=== PATIENT | male | born 1950 | race Caucasian/White ===

== ENCOUNTER → 2017-04-03 | Day surgery (SDC) | payer MEDICARE, OTHER ==
[~2017-04-03] VITALS: Ht 172.7 cm; Wt 81.5 kg
[~2017-04-03] MED LIST: ASPI-973 PO; Acetaminophen IV 1,000 mg IV ONE; Atropine 0.4 mg/mL Inj IVPUSH PRN; Belladonna Alk-Opium 60 mg Rectal Suppository RECTAL ONE; CeFAZolin 2 Gm/50 mL D5W Duplex Bag IV ONE; CeFAZolin 2 Gm/50 mL D5W IV Premix IV ONE; EPHEDrine Sulfate 50 mg/mL Inj IVPUSH PRN; Famotidine 20 mg/50 mL NS Premix IV ONE; HYDROmorphone 1 mg/mL Inj IVPUSH PRN; Labetalol 5 mg/mL 20 mL Inj IV PRN; Lactated Ringer's 1,000 ML IV ONE; Lactated Ringer's 1,000 ML IV SCH; Lactated Ringer's 500 ML IV PRN; MULT-1018 PO; MetoCLOpramide 5 mg/mL 2 mL Inj IVPUSH PRN; Mitomycin Inj 20 MG in Syringe 1 EACH IRRIGATION ONE; OMEG1CAP25 PO; OMEP20CA11 PO; Ondansetron 2 mg/mL 2 mL Inj IVPUSH PRN; Phenylephrine 10,000 mCg/mL Inj IVPUSH PRN; Propofol 10 mg/mL 20 mL Inj ONE; Succinylcholine Chloride 20 mg/mL 5 mL Inj ONE; TAMS0.4C98 PO; fentaNYL-PF 50 mCg/mL 2 mL Inj IVPUSH PRN; fentaNYL-PF 50 mCg/mL 2 mL Inj ONE
[2017-04-03 13:37] VITALS: BP 126/80; PULSE 60; RESP 16; O2SAT 99
--- NOTE | 2017-04-03 15:04 | PCM.HPANE ---
Patient Data Surgeon Admitting Provider: Attending Provider:Darrell Dixon MD Primary Care Physician:Noe Calhoun MD Other Provider:Kristen Wintersingham Anesthesia Reason for Visit Multi-Focal Bladder Cancer Ht/WT & BMI Height (Feet): 5 Height (Inches): 8 Weight (Kilograms): 81.5 Body Mass Index 27.00 Allergies Coded Allergies: No Known Allergies (Unverified , 04/03/17) Past Anesthesia History Anesthesia History: Denies:: Abnormal Airway, Anesthesia Reactions, Difficult Intubation, Fam Anesthesia Reaction, Fam Malignant Hypertherm, Malignant Hyperthermia Diabetes History Hx Diabetes?: No MRSA MRSA: No Medications Blood Thinner: Aspirin Last Dose Blood Thinner: Mar 27, 2017 Home Meds Incl Beta Norma: No Reported Medications Multivitamin (Multi Vitamin Daily)1 Each Tablet1 Each PO DAILY 04/03/17 [place]-3 Fatty Acids/Fish Oil ([place] 3 Fish Oil Softgel)1 Each Capsule.dr1 Each PO 03/30/17 Aspirin 81 Mg [id number] Mg PO DAILY Ref 0 03/30/17 Tamsulosin (Flomax)0.4 Mg Capsule0.4 Mg PO DAILY Ref 0 03/30/17 Omeprazole 20 Mg Capsule.dr20 Mg PO DAILY Ref 0 03/30/17 History History of ENT Problems?: No HEENT History: Denies:: Abnormal Airway Cataracts Difficult Intubation Dysphagia Glaucoma Hearing Problem Sinus Problem TMJ Denture Type: None Teeth Condition: Within Normal Limits Hx of Heart Problems?: No Cardiovascular History: Denies:: AICD Abdominal Aortic Aneurism Atrial Fibrillation Cardiac Surgery Chest Pain Congestive Heart Failure Coronary Artery Disease Edema Heart Murmur Hypertension Irregular Heartbeat Pacemaker Peripheral Vascular Rheumatic Fever Thrombophlebitis Valvular Heart Disease Hx of Respiratory Problem?: No Respiratory History: Denies:: Asthma COPD Chest Surgery Cough Dyspnea Emphysema Hemoptysis Oxygen Administration Pneumonia Pulmonary Embolism Tuberculosis Use of C-PAP Machine Use of Inhalers / NEBS Hx Neurologic Problems?: No Neurological History: Denies:: Alzheimer's Disease CVA Dementia Dizziness Headaches Multiple Sclerosis Parkinson's Disease Peripheral Neuropathy Seizures TIA Hx of GI Problems?: No Gastrointestinal History: Positive for:: Gastroesphageal Reflux Hiatal Hernia Denies:: Cirrhosis Diverticulitis Gall Bladder Disease Gastrointestinal Bleeding Heartburn Hepatitis Liver Disease Rectal Bleeding Hx of Problems?: Yes (bladder tumor) Genitourinary History: Denies:: HX of Hemodialysis Kidney Stones Urinary Tract Infection HX of Peritoneal Dialysis: No Male Hx: Positive for:: Testicular Surgery (Appendiage removed from testicle at age 12, removed) Denies:: Prostate Problems (BPH) Scrotal Mass Skin History: Denies:: History Skin Disorders? Pressure Ulcers Hx Musculoskeletal Problems?: No Musculoskeletal History: Positive for:: Musculoskeletal Trauma (achilles tendon sep, 2015) Osteoarthritis Denies:: Back Injury Degenerative Joint Joint Replacement Rheumatoid Arthritis Hx of Psycho/Social Problems?: Yes Psycho Social History: Positive for:: Hx Depression Denies:: Anxiety Bipolar Disorder Suicide Attempt Hx Surgeries?: Yes (Hemmoridectomy 2007) Hx Any Other Health Problems?: Yes Other History: Positive for:: Cancer (Bladder) Denies:: Endocrine Disease Hospitalization Thyroid Disease History Blood Transfusions: Positive for:: Accept Blood Products? Denies:: Blood Transfusions Hx Diabetes: No Hx Alcohol Use: YesAlcoholic Drinks Per Day: 3 drinks a dayHx Substance Use: No (On occassion) Stop/Bang S-Snoring: Do You Snore Loudly: No T-Tired: feel tired, fatigued: Yes O-Obsered: Observed not breath: No P-Blood Pressure: treated: No B- Body Mass Index > 35 kg/m2: No A- Age over 50: Yes N- Neck Large Circumference: No G- Gender Male: No CAROL Total Score: 2 Risk Assessment Category Category 1A: Patient has history of documented sleep apnea, and HAS NOT received any narcotic, sedative or anesthesia administration during this stay. Category 1B: Patient has history of documented sleep apnea, and HAS received any narcotic , sedative or anesthesia administration during this stay Category 2: Patient has SUSPECTED Obstructive Sleep Apnea, and HAS received any narcotic , sedative or anesthesia administration during this stay. Category 3: Patient has SUSPECTED Obstructive Sleep Apnea and HAS NOT received narcotic, sedative or anesthesia administration during this stay. Category 4: Outpatient in Procedural Areas with known sleep apnea or who screen positive for High Risk via the STOP/BANG questionnaire. Exam Exam Vital Signs Vital Signs Date Time Temp Pulse Resp B/P Pulse Ox O2 Delivery O2 Flow Rate FiO2 04/03/17 13:37 36.5 60 16 126/80 99 Room Air General Appearance: Alert, Oriented X3, Cooperative, No Acute Distress HEENT/AIRWAY: MP 2, Neck Movement (FROM), Mouth Opening (3 FBMO) Lungs: Clear to Auscultation, Normal Air Movement Heart: Exam Unremarkable, Regular Rate/Rhythm, No Murmurs/Rubs/Gallops Meds/Labs/Diagnostics Admission Meds Current Medications Lactated Ringer's (Lr) 1,000 ml @ 120 mls/hr Q8H20M ONCE IV Last administered on 04/03/17t 13:29; Start 04/03/17 at 05:00; Stop 04/03/17 at 13:19; Status DC Labs Test 03/29/17 18:20 Hold Urine Received (Received) Plan Impression Patient chart reviewed, patient interviewed and anesthestic plan with risks, benefits, and alternatives discussed, and informed consent obtained. NPO per Anesth. Guidelines: Yes ASA Physical Status: ASA2 Mod Systemic Disease Anesthetic Plan: GA Bene/Risks/Altern/Consents: Yes HP Complete Prior to Induction: Yes Werner Rose MD Apr 03, 2017 13:39
[2017-04-03 16:01] VITALS: BP 131/76; PULSE 77; RESP 18; O2SAT 98
[2017-04-03 16:11] VITALS: BP 150/90; PULSE 76; RESP 16; O2SAT 97
--- NOTE | 2017-04-03 16:14 | PCM.ANEP1 ---
Post Anesthesia PACU Phase 1 Assessment Vital Signs Vital Signs Date Time Temp Pulse Resp B/P Pulse Ox O2 Delivery O2 Flow Rate FiO2 04/03/17 16:11 76 16 150/90 97 Room Air 04/03/17 16:01 36.1 77 18 131/76 98 Room Air 04/03/17 13:37 36.5 60 16 126/80 99 Room Air Anesthetic Administered: GA Level of Alertness: Awake, talking HIDALGO's with Equal Strength: Yes Pain: No Nausea or Vomiting: No CV Function & Hydration Stable: Yes Airway Device: n/a Oxygen Delivery: Simple Mask Lungs: Clear to Auscultation, Normal Air Movement Dermatome Level: Full Sensation PACU Phase 2 Assessment Complications: No Follow up Care: N/A Patient Instructions Provided: N/A Werner Rose MD Apr 03, 2017 16:14
[2017-04-03 16:23] VITALS: BP 145/78; PULSE 73; RESP 14; O2SAT 96
[2017-04-03 16:34] VITALS: BP 140/85; PULSE 74; RESP 16; O2SAT 97
--- NOTE | 2017-04-07 13:39 | PATH ---
SURGICAL PATHOLOGY Attending Physician:Darrell Dixon MD CASE STATUS: Signed Out PATIENT NAME: BIANCA MEZA PID: [id number] : 1950 DATE COLLECTED:04/03/2017 00:00 SPECIMEN: 1: Bladder Neck 2: Bladder Neck 3: Bladder Neck 4: Bladder Neck CLINICAL HISTORY: MULTI-FOCAL BLADDER CANCER 1). POSTERIOR BLADDER NECK (TIME IN FORMALIN 1510) 2). ANTERIOR BLADDER NECK 11:00 (TIME IN FORMALIN 1513) 3). RIGHT BLADDER NECK (TIME IN FORMALIN 1526) 4). RIGHT BLADDER NECK BASE (TIME IN FORMALIN 1541) FINAL DIAGNOSIS: 1. Posterior Bladder Neck, Biopsy: Papillary urothelial carcinoma, noninvasive, low grade. See CAP Cancer Summary Data. 2. Anterior Bladder Neck, Biopsy: Papillary urothelial carcinoma, noninvasive, low grade. See CAP Cancer Summary Data. 3. Right Bladder Neck, Biopsy: Papillary urothelial carcinoma, noninvasive, low grade. See CAP Cancer Summary Data. 4. Right Bladder Neck Base, Biopsy: Papillary urothelial carcinoma, noninvasive, low grade. See CAP Cancer Summary Data. CAP CANCER SUMMARY DATA Procedure: Transurethral resection of bladder tumor (TURBT). Tumor site: Posterior bladder neck, anterior bladder neck, right bladder neck and and right bladder neck base (parts 1-4, respectively). Histologic type: Urothelial: Papillary urothelial carcinoma, noninvasive. Histologic grade: Low grade. Tumor configuration: Papillary. Muscularis propria presence: No muscularis propria (detrusor muscle) identified. Lymphovascular invasion: Not identified. Microscopic tumor extension: No definite lamina propria invasion is identified. 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 ICD10: C67.9 NOTE: As part of routine senior quality control technician, the case was also reviewed by Dr. Presley who agrees with the above interpretation. GROSS DESCRIPTION: 1. Received in formalin, labeled with the patient's name and designated "posterior bladder neck" are three sharpe-pink friable soft tissues ranging from 0.5 x 0.5 x 0.3 cm to 0.8 x 0.7 x 0.6 cm. The specimen is entirely submitted in one cassette 1A. ([id number]) 2. Received in formalin, labeled with the patient's name and "anterior bladder neck" is a 0.4 x 0.3 x 0.2 cm, sharpe friable soft tissue which is entirely submitted in cassette 2A. 3. Received in formalin, labeled with the patient's name and "right bladder neck" is a 4.5 x 2.0 x 1.5 cm aggregate of sharpe-pink soft and verrucoid appearing tissue which is entirely submitted in cassettes 3A-3C. 4. Received in formalin, labeled with the patient's name, designated "right bladder neck base" is a 2.8 x 2.3 x 0.3 cm aggregate of multiple sharpe-brown friable soft tissue which is entirely submitted in cassette 4A. ([id number]) ICD-9 CODES: CPT CODES: 1: 52147 2: 23734 3: 22836 4: 00923 Electronically Signed Out Aston Saenz MD [facility] [address], [place] [address] Technical component performed at [facility], [address], [place], [address]
--- NOTE | 2017-04-17 08:54 | OP ---
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 SURGEON: Darrell Dixon MD PROCEDURE: 1. Cystoscopy, transurethral resection of multiple bladder tumors. 2. Instillation of mitomycin-C (20 mg) ANESTHESIA: General. FINDINGS: Urethra normal. External sphincter intact. Prostate 3.5+ cm length with mild lateral lobe hyperplasia. Bladder trace trabeculation. There is a large papillary neoplasm emanating from the right bladder wall and forward most right floor, also a papillary lesion at 11 o'clock at the bladder neck. Also a third at 8 o'clock. Two other smaller papillary lesions in the distal trigone which were cautery destroyed. There were four specimens obtained from the 11 o'clock bladder neck, 8 o'clock bladder neck. The tumor at the right bladder neck and then the tumor base at the right bladder neck. PROCEDURE SUMMARY: The patient was positioned supine. Was administered general anesthesia. He was then repositioned in semi-lithotomy, and the lower abdomen, genitalia, and groin were prepped and draped in sterile fashion. The 25-[place] resectoscope was then advanced in the lower urinary tract with direct visualization and findings as described above. Next, two small papillary lesions were cautery destroyed in the area of the distal trigone. The other lesions were sequentially resected, collected, and labeled as to the site of their procurement sent to pathology for routine gross and microscopic examination. Hemostasis was obtained with electrocautery. The bladder was then left partially filled. All instrumentation was removed and a 20-[place] hematuria catheter was inserted. The balloon inflated to 10 cc and the contents were drained, 20 mg mitomycin-C suspended in 20 cc sterile saline was then instilled in the bladder for anticipated two hour retention. The patient was then repositioned supine, awakened, transferred to the [facility], and transferred to recovery in stable condition. Cc: [facility]
== END | disposition home or self-care (01) ==
LOC: SAS 13:04
PROVIDERS: ATTEND Specialist
DX: C67.5 Malignant neoplasm of bladder neck (principal); C67.8 Malignant neoplasm of overlapping sites of bladder; N40.1 Benign prostatic hyperplasia with lower urinary tract symptoms; R31.9 Hematuria, unspecified; K21.9 Gastro-esophageal reflux disease without esophagitis; Z87.891 Personal history of nicotine dependence; Z79.82 Long term (current) use of aspirin
CPT/HCPCS: 52240; 88305; J0131; J0330; J0690; J2704; J3010; J3490; J7120